=== PATIENT | female | born 1975 | race Caucasian/White ===

== ENCOUNTER 2022-06-21 17:10 | Outpatient (CLI) | payer BC, SELFPAY ==
--- NOTE | 2022-06-21 17:15 | CRLHL7_ITS ---
For Patients: As a result of the Century Cures Act, medical imaging exams and procedure reports are released immediately into your electronic medical record. You may view this report before your referring provider. If you have questions, please contact your health care provider. BILATERAL SCREENING MAMMOGRAM WITH COMPUTER-AIDED DETECTION TECHNIQUE: CC and MLO views were obtained. These mammographic images have been obtained using full-field digital technique. These mammographic images were interpreted with the benefit of computer-aided detection. COMPARISON FILM: 11/03/2020, 03/19/2018. FINDINGS: The breasts are heterogeneously dense, which may obscure small masses IMPRESSION: There is no radiographic evidence for malignancy. ASSESSMENT: BI-RADS Category 2: Benign RECOMMENDATION: Routine screening mammogram in 1 year. A lay language report of this examination will be provided to the patient. Wade Cruz M.D. Diagnostic Radiologist [email or web address] SHEREE/Dictated by: Wade Cruz MD @ 06/22/2022 9:33:00 AM (Electronically Signed)
== END 2022-06-21 17:11 | disposition home or self-care (01) ==
LOC: MAMMO 17:12
PROVIDERS: Visit Provider Obstetrics & Gynecology
DX: Z12.31 Encounter for screening mammogram for malignant neoplasm of breast (principal); R92.2 Inconclusive mammogram
CPT/HCPCS: 77063; 77067

== ENCOUNTER 2022-11-21 10:07 | Outpatient (CLI) | payer BC, SELFPAY ==
[2022-11-21 17:39] LABS: Glucose* 86 mg/dL (60-115); HDL Cholesterol* 74 mg/dL (>=50)
[2022-11-21 18:13] LABS: Cholesterol* 209 mg/dL (90-199); LDL Cholesterol Calculated 119 mg/dL (<100); Triglycerides* 78 mg/dL (40-149)
[2022-11-21 20:39] LABS: TSH With Reflex to FT4* 0.635 uIU/mL (0.270-4.200)
== END 2022-11-21 10:08 | disposition home or self-care (01) ==
PROVIDERS: PCP Dermatology; Visit Provider Obstetrics & Gynecology
DX: Z01.419 Encounter for gynecological examination (general) (routine) without abnormal findings (principal); R53.83 Other fatigue
CPT/HCPCS: 80061; 82947; 84443

== ENCOUNTER 2023-07-17 08:42 | Outpatient (CLI) | payer BC, SELFPAY ==
--- NOTE | 2023-07-17 09:44 | W.ANESCHARGE ---
Anesthesia Charges Start Date/Time Anesthesia Start Date: 07/17/23 Anesthesia Start Time: 09:51 Stop Date/Time Anesthesia Stop Date: 07/17/23 Anesthesia Stop Time: 10:34
--- NOTE | 2023-07-17 10:37 | W.ANESCHARGE ---
Anesthesia Charges Start Date/Time Anesthesia Start Date: 07/17/23 Anesthesia Start Time: 09:51 Stop Date/Time Anesthesia Stop Date: 07/17/23 Anesthesia Stop Time: 10:34
== END 2023-07-17 08:43 | disposition home or self-care (01) ==
LOC: OP CLINIC 08:43
PROVIDERS: PCP Obstetrics & Gynecology; Visit Provider Surgery
DX: Z12.11 Encounter for screening for malignant neoplasm of colon (principal); K62.1 Rectal polyp
CPT/HCPCS: 00811; 45385; 88305; J2704

== ENCOUNTER 2024-10-18 15:17 | Outpatient (CLI) | payer BC, SELFPAY | END 2024-10-18 15:18 | disposition home or self-care (01) | LOC: NFLDREF 10-21 06:59 | PROVIDERS: PCP Family Medicine; Referring Provider Family Medicine; Visit Provider Family Medicine | DX: R53.83 Other fatigue (principal); K90.41 Non-celiac gluten sensitivity; R10.9 Unspecified abdominal pain; R19.7 Diarrhea, unspecified; Z13.6 Encounter for screening for cardiovascular disorders | CPT/HCPCS: 80053; 80061; 82607; 82728; 84443; 86231; 86258; 86364 ==